=== PATIENT | female | born 1955 | race Asian ===

== ENCOUNTER 2021-08-19 22:25 | Inpatient (IN) | payer MEDICAID ==
[~2021-08-19] VITALS: Ht 167.6 cm; Wt 48.1 kg
[2021-08-19 23:17] LABS: BASOPHILS % (AUTO) 0.8 % (0.0-2.0); EOSINOPHILS % (AUTO) 4.7 % (1.0-6.0); HEMATOCRIT 37.3 % (36-46); HEMOGLOBIN 12.2 g/dL (12.0-16.0); LYMPHOCYTES # (AUTO) 1.2 K/uL (1.0-4.8); LYMPHOCYTES % (AUTO) 18.6 % (22.0-44.0); MEAN CORPUSCULAR HEMOGLOBIN 31.5 pg (26.0-34.0); MEAN CORPUSCULAR HGB CONC 32.8 G/dL (31.0-37.0); MEAN CORPUSCULAR VOLUME 96 fL (80-100); MONOCYTES # (AUTO) 0.5 K/uL (0.1-1.0); MONOCYTES % (AUTO) 7.9 % (2.0-9.0); NEUTROPHILS # (AUTO) 4.5 K/uL (1.8-7.7); PLATELET COUNT (AUTO) 253 K/uL (150-450); RED BLOOD CELL COUNT(AUTO) 3.87 MIL/uL (4.00-5.20); RED CELL DISTRIBUTION WIDTH 13.9 % (11.5-14.5)
[2021-08-19 23:26] LABS: ANION GAP 7 mmol/L (8-16); CALCIUM, TOTAL 8.9 mg/dL (8.8-10.5); CARBON DIOXIDE 30 mmol/L (22-29); CHLORIDE 105 mmol/L (98-107); CREATININE 0.81 mg/dL (0.60-1.30); GLUCOSE,RANDOM 99 mg/dL (70-110); POTASSIUM 3.6 mmol/L (3.5-5.1); SODIUM SERUM 142 mmol/L (136-145); UREA NITROGEN, BLOOD 12 mg/dL (7-18)
[2021-08-19 23:32] LABS: GLOMERULAR FILTR. RATE CALC > 60 mL/min (>60)
[2021-08-19 23:40] LABS: ACETAMINOPHEN < 2 mcg/mL (10-30); ALANINE AMINOTRANSFERASE 31 U/L (12-78); ALBUMIN 3.5 g/dL (3.4-5.0); ALKALINE PHOSPHATASE 125 U/L (46-116); ASPARTATE AMINOTRANSFERASE 20 U/L (15-37); BILIRUBIN,TOTAL 0.4 mg/dL (0.1-1.0); THYROID STIMULATING HORMONE 1.13 uIU/mL (0.36-3.74); TOTAL PROTEIN, SERUM 7.5 g/dL (6.4-8.2)
[2021-08-19 23:49] LABS: SALICYLATE < 0.2 mg/dL (2.8-20.0)
[2021-08-20 02:10] LABS: VALPROIC ACID < 3 mcg/mL (50-100)
[2021-08-20 02:14] LABS: LITHIUM < 0.20 mmol/L (0.60-1.20)
[2021-08-20] MEDS ORDERED: ZOLPIDEM TARTRATE 10 MG TABLET PO PRN (02:30)
[2021-08-20] MEDS ORDERED: HALOPERIDOL 5 MG TABLET PO PRN ×2 (02:30→14:15)
[2021-08-20] MEDS ORDERED: LORazepam 2 MG TABLET PO PRN ×2 (02:30→14:15)
[2021-08-20] MEDS ORDERED: ACETAMINOPHEN 325 MG TABLET PO PRN ×2 (03:00→09:15)
[2021-08-20] MEDS ORDERED: ONDANSETRON HCL 4 MG/2 ML VIAL IVP PRN ×2 (03:00→09:15)
[2021-08-20] MEDS ORDERED: 0.9% SODIUM CHLORIDE 10 ML SYRINGE IVP PRN (03:00)
[2021-08-20 05:09] LABS: COVID AG,FIA SOURCE NASOPHARYNGEAL
[2021-08-20 05:59] VITALS: BP 109/66
[2021-08-20 07:17] VITALS: BP 110/68
[2021-08-20] MEDS ORDERED: PNEUMOCOCCAL VACCINE POLYVALENT 0.5 ML VIAL [PPSV23] IM. ONE (08:15)
[2021-08-20] MEDS ORDERED: ZOLPIDEM TARTRATE 5 MG TABLET PO PRN (09:15)
[2021-08-20] MEDS ORDERED: MORPHINE SULFATE 2 MG/ML SYRINGE IVP PRN (09:15)
[2021-08-20] MEDS ORDERED: BISACODYL 10 MG RECTAL RECTAL SUPPOSITORY PR PRN (09:15)
[2021-08-20] MEDS ORDERED: MAGNESIUM HYDROXIDE SUSPENSION 30 ML UDCUP PO PRN (09:15)
[2021-08-20] MEDS ORDERED: HYDROCODONE/ACETAMINOPHEN 5-325 MG TABLET PO PRN (09:15)
[2021-08-20] MEDS ORDERED: HALOPERIDOL LACTATE 5 MG/ML VIAL IM ONE (12:45)
[2021-08-20] MEDS: LACTULOSE 20 GM/30 ML SOLUTION UDCUP PO SCH (13:45)
[2021-08-20 15:34] VITALS: BP 112/64
[2021-08-20] MEDS: HEPARIN SODIUM,PORCINE 5,000 UNITS/ML VIAL SQ SCH (16:00)
[2021-08-20 19:18] VITALS: BP 106/71
[2021-08-20] MEDS: DOCUSATE SODIUM 100 MG CAPSULE PO SCH (20:55)
[2021-08-21 04:27] VITALS: BP 108/66
[2021-08-21 07:10] VITALS: BP 110/68
[2021-08-21 07:23] LABS: APPEARANCE,URINE CLEAR (CLEAR); BILIRUBIN,URINE NEGATIVE (NEGATIVE); GLUCOSE, URINE (UA) NEGATIVE (NEGATIVE); KETONES,URINE NEGATIVE (NEGATIVE); LEUKOCYTE ESTERASE ,URINE LARGE (NEGATIVE); NITRATE,URINE NEGATIVE (NEGATIVE); OCCULT BLOOD,URINE NEGATIVE (NEGATIVE); PH,URINE 6.5 (5.0-8.0); PROTEIN,URINE NEGATIVE (NEGATIVE); SPECIFIC GRAVITIY, URINE 1.014 (1.003-1.030); UROBILINOGEN,URINE <=1.0 mg/dL (<=1.0)
[2021-08-21 07:38] LABS: AMPHET/METH SCREEN,URINE NEGATIVE (NEGATIVE); BARBITURATE SCREEN, URINE NEGATIVE (NEGATIVE); BENZODIAZEPINES SCREEN,URINE NEGATIVE (NEGATIVE); CANNABINOID SCREEN,URINE NEGATIVE (NEGATIVE); COCAINE SCREEN,URINE NEGATIVE (NEGATIVE); METHADONE SCREEN, URINE NEGATIVE (NEGATIVE); OPIATE SCREEN,URINE NEGATIVE (NEGATIVE)
[2021-08-21 07:39] LABS: PHENCYCLIDINE SCREEN,URINE NEGATIVE (NEGATIVE)
[2021-08-21 07:58] LABS: BACTERIA,URINE Few /HPF (None Seen); RBC,URINE None Seen /HPF (0-2); SQUAMOUS EPITHELIAL CELL,UR Few /LPF (None Seen)
[2021-08-21] MEDS: FOLIC ACID 1 MG TABLET PO SCH (08:18)
[2021-08-21] MEDS: DOCUSATE SODIUM 100 MG CAPSULE PO SCH ×2 (08:18→22:31)
[2021-08-21] MEDS: THIAMINE 100 MG TABLET PO SCH (08:18)
[2021-08-21] MEDS: LACTULOSE 20 GM/30 ML SOLUTION UDCUP PO SCH (08:18)
[2021-08-21] MEDS: PANTOPRAZOLE SODIUM 40 MG DR TABLET PO SCH (08:18)
[2021-08-21] MEDS: MULTIVITAMINS WITH MINERALS, THERAPEUTIC TABLET PO SCH (08:18)
[2021-08-21] MEDS: HEPARIN SODIUM,PORCINE 5,000 UNITS/ML VIAL SQ SCH ×3 (08:19→15:10)
[2021-08-21 11:22] LABS: BASOPHILS % (AUTO) 1.3 % (0.0-2.0); EOSINOPHILS % (AUTO) 3.3 % (1.0-6.0); HEMATOCRIT 37.6 % (36-46); HEMOGLOBIN 12.4 g/dL (12.0-16.0); LYMPHOCYTES # (AUTO) 0.8 K/uL (1.0-4.8); LYMPHOCYTES % (AUTO) 14.2 % (22.0-44.0); MEAN CORPUSCULAR HEMOGLOBIN 31.3 pg (26.0-34.0); MEAN CORPUSCULAR HGB CONC 32.9 G/dL (31.0-37.0); MEAN CORPUSCULAR VOLUME 95 fL (80-100); MONOCYTES # (AUTO) 0.3 K/uL (0.1-1.0); MONOCYTES % (AUTO) 5.2 % (2.0-9.0); NEUTROPHILS # (AUTO) 4.3 K/uL (1.8-7.7); PLATELET COUNT (AUTO) 258 K/uL (150-450); RED BLOOD CELL COUNT(AUTO) 3.95 MIL/uL (4.00-5.20); RED CELL DISTRIBUTION WIDTH 13.5 % (11.5-14.5)
[2021-08-21 11:41] LABS: ANION GAP 7 mmol/L (8-16); CALCIUM, TOTAL 8.8 mg/dL (8.8-10.5); CARBON DIOXIDE 28 mmol/L (22-29); CHLORIDE 106 mmol/L (98-107); CREATININE 0.71 mg/dL (0.60-1.30); GLUCOSE,RANDOM 94 mg/dL (70-110); POTASSIUM 4.5 mmol/L (3.5-5.1); SODIUM SERUM 141 mmol/L (136-145); UREA NITROGEN, BLOOD 13 mg/dL (7-18)
[2021-08-21 11:42] LABS: GLOMERULAR FILTR. RATE CALC > 60 mL/min (>60)
[2021-08-21] MEDS: ARIPiprazole 5 MG TABLET PO SCH (13:24)
[2021-08-21 15:15] VITALS: BP 106/72
[2021-08-21 20:30] VITALS: BP 112/69
[2021-08-22] MEDS: HEPARIN SODIUM,PORCINE 5,000 UNITS/ML VIAL SQ SCH ×4 (00:03→16:13)
[2021-08-22 05:43] VITALS: BP 125/80
[2021-08-22 08:05] VITALS: BP 116/85
[2021-08-22] MEDS: DOCUSATE SODIUM 100 MG CAPSULE PO SCH ×2 (08:42→21:25)
[2021-08-22] MEDS: ARIPiprazole 5 MG TABLET PO SCH (08:42)
[2021-08-22] MEDS: MULTIVITAMINS WITH MINERALS, THERAPEUTIC TABLET PO SCH (08:42)
[2021-08-22] MEDS: LACTULOSE 20 GM/30 ML SOLUTION UDCUP PO SCH (08:42)
[2021-08-22] MEDS: THIAMINE 100 MG TABLET PO SCH (08:42)
[2021-08-22] MEDS: PANTOPRAZOLE SODIUM 40 MG DR TABLET PO SCH (08:42)
[2021-08-22] MEDS: FOLIC ACID 1 MG TABLET PO SCH (08:42)
[2021-08-22] MEDS: CEPHALEXIN MONOHYDRATE 500 MG CAPSULE PO SCH ×2 (14:36→21:25)
[2021-08-22 15:38] VITALS: BP 115/76
[2021-08-22 19:24] VITALS: BP 115/56
[2021-08-23 04:57] VITALS: BP 118/74
[2021-08-23 07:07] LABS: COVID AG,FIA SOURCE NASAL SWAB
[2021-08-23] MEDS: HEPARIN SODIUM,PORCINE 5,000 UNITS/ML VIAL SQ SCH ×4 (08:00→23:12)
[2021-08-23 09:00] VITALS: BP 93/66
[2021-08-23] MEDS: FOLIC ACID 1 MG TABLET PO SCH (09:16)
[2021-08-23] MEDS: PANTOPRAZOLE SODIUM 40 MG DR TABLET PO SCH (09:17)
[2021-08-23] MEDS: ARIPiprazole 5 MG TABLET PO SCH (09:17)
[2021-08-23] MEDS: DOCUSATE SODIUM 100 MG CAPSULE PO SCH ×2 (09:17→20:37)
[2021-08-23] MEDS: THIAMINE 100 MG TABLET PO SCH (09:17)
[2021-08-23] MEDS: MULTIVITAMINS WITH MINERALS, THERAPEUTIC TABLET PO SCH (09:17)
[2021-08-23] MEDS: CEPHALEXIN MONOHYDRATE 500 MG CAPSULE PO SCH ×2 (09:17→20:37)
[2021-08-23] MEDS: LACTULOSE 20 GM/30 ML SOLUTION UDCUP PO SCH (09:18)
[2021-08-23 15:21] VITALS: BP 114/58
[2021-08-23 19:32] VITALS: BP 128/76
[2021-08-24 04:21] VITALS: BP 115/79
[2021-08-24 08:02] VITALS: BP 121/69
[2021-08-24] MEDS: THIAMINE 100 MG TABLET PO SCH (09:53)
[2021-08-24] MEDS: ARIPiprazole 5 MG TABLET PO SCH (09:53)
[2021-08-24] MEDS: HEPARIN SODIUM,PORCINE 5,000 UNITS/ML VIAL SQ SCH (09:53)
[2021-08-24] MEDS: FOLIC ACID 1 MG TABLET PO SCH (09:53)
[2021-08-24] MEDS: MULTIVITAMINS WITH MINERALS, THERAPEUTIC TABLET PO SCH (09:53)
[2021-08-24] MEDS: LACTULOSE 20 GM/30 ML SOLUTION UDCUP PO SCH (09:53)
[2021-08-24] MEDS: DOCUSATE SODIUM 100 MG CAPSULE PO SCH (09:53)
[2021-08-24] MEDS: PANTOPRAZOLE SODIUM 40 MG DR TABLET PO SCH (09:53)
[2021-08-24] MEDS: CEPHALEXIN MONOHYDRATE 500 MG CAPSULE PO SCH (09:54)
[2021-08-24 10:42] LABS: COVID AG,FIA SOURCE NASAL SWAB
== END 2021-08-24 11:00 | DRG 441 ==
LOC: EMS 22:28 → 6S 08-20 04:45
PROVIDERS: ADMIT Internal Medicine; ATTEND Internal Medicine
DX: K72.90 Hepatic failure, unspecified without coma (principal); G93.41 Metabolic encephalopathy; E43 Unspecified severe protein-calorie malnutrition; Z68.1 Body mass index [BMI] 19.9 or less, adult; F29 Unspecified psychosis not due to a substance or known physiological condition; F41.9 Anxiety disorder, unspecified; Z20.822 Contact with and (suspected) exposure to COVID-19; Z79.899 Other long term (current) drug therapy
CPT/HCPCS: 70450; 71045; 80048; 80053; 80164; 80178; 80307; 81001; 82140; 84443; 85025; 87086; 99285; G0480; G0481; J1644; 36415-L1; 36415-TC

== ENCOUNTER 2021-08-24 09:08 | Inpatient (IN) | payer MEDICAID ==
[~2021-08-24] VITALS: Ht 167.6 cm; Wt 50.0 kg
[2021-08-24 12:33] VITALS: BP 119/72
[2021-08-24 16:10] VITALS: BP 107/64
[2021-08-24] MEDS ORDERED: HALOPERIDOL 5 MG TABLET PO PRN (16:30)
[2021-08-24] MEDS ORDERED: ZOLPIDEM TARTRATE 10 MG TABLET PO PRN (16:30)
[2021-08-25 00:37] VITALS: BP 126/71
[2021-08-25 07:18] LABS: BASOPHILS % (AUTO) 1.1 % (0.0-2.0); EOSINOPHILS % (AUTO) 6.3 % (1.0-6.0); HEMATOCRIT 39.9 % (36-46); HEMOGLOBIN 13.3 g/dL (12.0-16.0); LYMPHOCYTES # (AUTO) 0.9 K/uL (1.0-4.8); LYMPHOCYTES % (AUTO) 14.9 % (22.0-44.0); MEAN CORPUSCULAR HEMOGLOBIN 31.9 pg (26.0-34.0); MEAN CORPUSCULAR HGB CONC 33.2 G/dL (31.0-37.0); MEAN CORPUSCULAR VOLUME 96 fL (80-100); MONOCYTES # (AUTO) 0.4 K/uL (0.1-1.0); NEUTROPHILS # (AUTO) 4.2 K/uL (1.8-7.7); NEUTROPHILS % (AUTO) 70.7 % (40.0-70.0); PLATELET COUNT (AUTO) 294 K/uL (150-450); RED BLOOD CELL COUNT(AUTO) 4.16 MIL/uL (4.00-5.20); RED CELL DISTRIBUTION WIDTH 14.3 % (11.5-14.5)
[2021-08-25 07:24] LABS: HEMOGLOBIN A1C 5.6 % (3.8-5.6)
[2021-08-25 07:51] LABS: ALANINE AMINOTRANSFERASE 62 U/L (12-78); ALBUMIN 3.4 g/dL (3.4-5.0); ALKALINE PHOSPHATASE 83 U/L (46-116); ANION GAP 2 mmol/L (8-16); ASPARTATE AMINOTRANSFERASE 55 U/L (15-37); BILIRUBIN,TOTAL 0.3 mg/dL (0.1-1.0); CALCIUM, TOTAL 9.4 mg/dL (8.8-10.5); CARBON DIOXIDE 31 mmol/L (22-29); CHLORIDE 102 mmol/L (98-107); CHOL/HDL RATIO 2.6 (3.9-5.7); CHOLESTEROL 190 mg/dL (131-200); CREATININE 0.74 mg/dL (0.60-1.30); GLUCOSE,RANDOM 101 mg/dL (70-110); HDL CHOLESTEROL 72 mg/dL (40-60); LDL CHOL (CALC.) 89 mg/dL (0-130); POTASSIUM 4.2 mmol/L (3.5-5.1); SODIUM SERUM 135 mmol/L (136-145); TOTAL PROTEIN, SERUM 7.7 g/dL (6.4-8.2); TRIGLYCERIDES 144 mg/dL (15-150); UREA NITROGEN, BLOOD 20 mg/dL (7-18)
[2021-08-25 07:52] LABS: GLOMERULAR FILTR. RATE CALC > 60 mL/min (>60)
[2021-08-25 08:23] VITALS: BP 112/60
[2021-08-25] MEDS: ARIPiprazole 10 MG TABLET PO SCH (13:54)
[2021-08-25 16:21] VITALS: BP 112/66
[2021-08-26 01:35] VITALS: BP 110/63
[2021-08-26] MEDS: ARIPiprazole 10 MG TABLET PO SCH (08:22)
[2021-08-26] MEDS: MULTIVITAMINS WITH MINERALS, THERAPEUTIC TABLET PO SCH (08:22)
[2021-08-26 08:39] VITALS: BP 126/72
[2021-08-26 16:15] VITALS: BP 115/64
[2021-08-27 00:59] VITALS: BP 126/76
[2021-08-27] MEDS: LORazepam 2 MG TABLET PO PRN ×2 (01:01→08:35)
[2021-08-27 08:32] VITALS: BP 105/59
[2021-08-27] MEDS: MULTIVITAMINS WITH MINERALS, THERAPEUTIC TABLET PO SCH (08:35)
[2021-08-27] MEDS: ARIPiprazole 10 MG TABLET PO SCH (08:35)
[2021-08-27 20:12] VITALS: BP 94/68
[2021-08-28 08:27] VITALS: BP 109/68
[2021-08-28] MEDS: MULTIVITAMINS WITH MINERALS, THERAPEUTIC TABLET PO SCH (09:10)
[2021-08-28] MEDS: ARIPiprazole 10 MG TABLET PO SCH (09:10)
[2021-08-28 17:27] VITALS: BP 115/67
[2021-08-29 06:54] LABS: APPEARANCE,URINE HAZY (CLEAR); BILIRUBIN,URINE NEGATIVE (NEGATIVE); GLUCOSE, URINE (UA) NEGATIVE (NEGATIVE); KETONES,URINE NEGATIVE (NEGATIVE); LEUKOCYTE ESTERASE ,URINE NEGATIVE (NEGATIVE); NITRATE,URINE NEGATIVE (NEGATIVE); OCCULT BLOOD,URINE NEGATIVE (NEGATIVE); PROTEIN,URINE NEGATIVE (NEGATIVE); UROBILINOGEN,URINE <=1.0 mg/dL (<=1.0)
[2021-08-29 07:00] LABS: AMPHET/METH SCREEN,URINE NEGATIVE (NEGATIVE); BARBITURATE SCREEN, URINE NEGATIVE (NEGATIVE); BENZODIAZEPINES SCREEN,URINE NEGATIVE (NEGATIVE); CANNABINOID SCREEN,URINE NEGATIVE (NEGATIVE); COCAINE SCREEN,URINE NEGATIVE (NEGATIVE); METHADONE SCREEN, URINE NEGATIVE (NEGATIVE); OPIATE SCREEN,URINE NEGATIVE (NEGATIVE)
[2021-08-29 07:03] LABS: PHENCYCLIDINE SCREEN,URINE NEGATIVE (NEGATIVE)
== END 2021-08-29 00:05 | disposition home or self-care (01) | DRG 885 ==
LOC: B3A 10:27
PROVIDERS: ADMIT Psychiatry & Neurology Psychiatry; ATTEND Psychiatry & Neurology Psychiatry
DX: F29 Unspecified psychosis not due to a substance or known physiological condition (principal); E87.1 Hypo-osmolality and hyponatremia; F03.90 Unspecified dementia, unspecified severity, without behavioral disturbance, psychotic disturbance, mood disturbance, and anxiety; R10.13 Epigastric pain; R00.0 Tachycardia, unspecified; Z91.83 Wandering in diseases classified elsewhere; Z79.899 Other long term (current) drug therapy
CPT/HCPCS: 80053; 80061; 80307; 81003; 83036; 85025; 86592; 87081